=== PATIENT | male | born 1955 | race Two or more races ===

== ENCOUNTER 2018-06-03 22:27 | Emergency (ER) | payer SELFPAY ==
[2018-06-03 22:30] VITALS: BP 132/91; PULSE 76; RESP 16; O2SAT 98
--- NOTE | 2018-06-03 22:45 | ED PDOC ---
HPI: Psych/Substance Abuse Time Seen by Provider: 06/03/18 22:31 Chief Complaint (Nursing): Alcohol Ingestion Chief Complaint (Provider): etoh History Per: Patient, EMS Additional Complaint(s): 62 y/o male brought in by EMS for alcohol intoxication. Patient states he was brought here because he was drinking beers on a bus, states he had four tonight. Patient denies acute medical or psychiatric complaints. Past Medical History Reviewed: Historical Data, Nursing Documentation, Vital Signs Vital Signs: Last Vital Signs Temp 98.5 F 06/03/18 22:28 Pulse 76 06/03/18 22:28 Resp 16 06/03/18 22:28 BP 132/91 H 06/03/18 22:28 Pulse Ox 98 06/03/18 22:28 - Medical History PMH: No Chronic Diseases - Surgical History Surgical History: No Surg Hx - Family History Family History: States: No Known Family Hx - Living Arrangements Living Arrangements: Alone - Allergies Allergies/Adverse Reactions: Allergies Allergy/AdvReac Type Severity Reaction Status Date / Time No Known Allergies Allergy Verified 06/03/18 22:30 Review of Systems ROS Statement: Except As Marked, All Systems Reviewed And Found Negative Physical Exam - Reviewed Nursing Documentation Reviewed: Yes Vital Signs Reviewed: Yes - Physical Exam Appears: Positive for: Well, Non-toxic, No Acute Distress Head Exam: Positive for: ATRAUMATIC, NORMAL INSPECTION, NORMOCEPHALIC Skin: Positive for: Normal Color Eye Exam: Positive for: Normal appearance ENT: Positive for: Normal ENT Inspection Cardiovascular/Chest: Positive for: Regular Rate, Rhythm Respiratory: Positive for: Normal Breath Sounds Gastrointestinal/Abdominal: Positive for: Normal Exam Back: Positive for: Normal Inspection Extremity: Positive for: Normal ROM Neurologic/Psych: Positive for: Alert, Oriented (x3) - ECG O2 Sat by Pulse Oximetry: 98 - Progress ED Course And Treament: Patient awake, alert, oriented x3 upon arrival. Ambulating steady gait Patient requires no further intervention in the ED and is stable for discharge at this time Disposition - Clinical Impression Clinical Impression: Alcohol use - Patient ED Disposition Is Patient to be Admitted: No Counseled Patient/Family Regarding: Diagnosis, Need For Followup - Disposition Disposition: Routine/Home Disposition Time: 22:45 Condition: STABLE Instructions: Alcohol Use - When Is Drinking a Problem? Print Language: WOLOF
[2018-06-03 23:21] VITALS: TEMP 98.2
== END 2018-06-03 23:05 | disposition home or self-care (01) ==
LOC: H.ER 22:27
DX: F10.129 Alcohol abuse with intoxication, unspecified (principal)